=== PATIENT | male | born 1960 | race Two or more races ===

== ENCOUNTER 2018-08-02 09:07 | Emergency (ER) | payer MEDICAID ==
[~2018-08-02] VITALS: Ht 172.7 cm; Wt 71.3 kg
[2018-08-02] MEDS ORDERED: VANCOMYCIN 1 G PREMIX 200 ML IV ONE (10:15)
[2018-08-02] MEDS ORDERED: PIPERACILLIN/TAZ 3.375G PREMIX 50 ML IV ONE (10:15)
[2018-08-02] MEDS ORDERED: SODIUM CHLORIDE 0.9% 1000ML BAG (SEPSIS BOLUS) IV ONE (10:15)
[2018-08-02 10:55] LABS: HEMATOCRIT. 39.8 % (42.0-52.0); HEMOGLOBIN. 13.1 g/dL (14.0-18.0); MEAN CORPUSCULAR HEMOGLOBIN 28.6 pg (28.0-32.0); MEAN CORPUSCULAR VOLUME 86.8 fL (80.0-94.0); MEAN PLATELET VOLUME 8.8 fl (7.4-10.4); PLATELET 428 x1000/uL (130-400); RED BLOOD CELL COUNT 4.58 mill/uL (4.7-6.1); RED CELL DISTRIBUTION WIDTH 13.6 % (11.6-14.6)
[2018-08-02 11:02] LABS: CHLORIDE 92 mEq/L (98-107)
[2018-08-02 11:05] LABS: INR 1.1; PROTHROMBIN TIME 10.8 sec (9.1-11.1)
[2018-08-02 11:11] LABS: PLATELET ESTIMATE SLIGHTLY INCREASED
[2018-08-02 14:49] VITALS: BP 142/78
== END 2018-08-02 14:51 | disposition short-term general hospital (02) ==
LOC: ER 09:07 → CANBEDREQ 08-03 01:51
DX: L03.031 Cellulitis of right toe (principal); M72.6 Necrotizing fasciitis; G89.29 Other chronic pain; E11.9 Type 2 diabetes mellitus without complications; I10 Essential (primary) hypertension
CPT/HCPCS: 36415; 71045; 73630; 80053; 85025; 85610; 85730; 86850; 86900; 86901; 87040; 87077; 87186; 93005; 93923; 93970; 96365; 96366; 96367; 99285; J2543; J3370; J7030